=== PATIENT | female | born 1980 | race Caucasian/White ===

== ENCOUNTER 2018-11-03 15:45 | Outpatient (CLI) | payer OTHER ==
--- NOTE | 2018-11-07 15:39 | Diagnostic Imaging Report ---
PATIENT: ADÁN LEE : 1980 DATE OF EXAM: 11/03/2018 PATIENT MRN.: [id number] REF. PHYSICIAN: DR TREV CATHERINE EXAM: DX-ELBOW 2 VIEWS Indication: Right elbow pain. Technique: AP and lateral views of the right elbow were obtained. Comparison: None available. Findings: There is no fracture, dislocation or suspicious osseous lesions of the right elbow. There is no elbow joint effusion. There is no joint space narrowing or degenerative changes. There is no soft tissue swelling or radiopaque foreign bodies. IMPRESION: Normal plane film series of the right elbow. Dr. Jovon Christian 11/03/18 [id number]
== END 2018-11-03 15:47 ==
LOC: RAD 15:45 → SUPCPDRO 15:45 → RAD 15:47
PROVIDERS: ATTEND Family Medicine
DX: M25.521 Pain in right elbow (principal)
CPT/HCPCS: 73070